=== PATIENT | female | born 1985 | race Caucasian/White ===

== ENCOUNTER 2018-01-13 10:35 | Inpatient (IN) | payer OTHER ==
[~2018-01-13] VITALS: Ht 157.5 cm; Wt 54.4 kg
--- NOTE | ~2018-01-13 | EKG ---
[address] [place] [address] ELECTROCARDIOGRAM REPORT Name: KEVIN BROOKS Room #: 432-P ADM IN M.R.#: [id number] Admission: 01/13/18 Attend Phys: Marcelino Méndez MD Discharge: Date of : 81 Report #: [id number] THIS REPORT FOR: //name// [facility] ED Test Date: 2018-01-13 Test Time: 11:16:17 Pat Name: KEVIN BROOKS Department: Room: Gender: F Cell Geneticist: STEFANIA : 1985 Requested By: Chau Franco Order Number: [id number] MD: Franklin Mead Measurements Intervals Snyder Rate: 75 P: 66 ND: 132 QRS: 29 QRSD: 93 T: 54 QT: 373 QTc: 417 Interpretive Statements Sinus rhythm Normal tracing No previous ECG available for comparison Electronically Signed On 01-14-2018 7:38:09 CDT by Franklin Mead [email or web address] <ELECTRONICALLY SIGNED> By: Franklin Mead MD, [facility] 01/14/18 0738 [id number] Franklin Mead MD, FACC /EPI
--- NOTE | ~2018-01-13 | HC ---
[facility] [place] [address] CONSULTATION Name: KEVIN BROOKS Room #: 432-[facility] IN M.R.#: [id number] Admission: 01/13/18 Attend Phys: Marcelino Méndez MD Discharge: 01/16/18 Date of : 81 Report #: [id number] THIS REPORT FOR: //name// CC: MAEVE physician/PCP Marcelino Méndez DATE OF SERVICE: 01/14/2018 ATTENDING PHYSICIAN: Marcelino Méndez MD REASON FOR CONSULTATION: Fever. Pyelonephritis. Bacteremia. HISTORY OF PRESENT ILLNESS: A 32-year-old white woman admitted through the Emergency Room with history of left flank pain. The patient's urinalysis and urine culture abnormal compatible with acute pyelonephritis and so does the CT scan of abdomen and pelvis that revealed edematous changes of the left kidney. No previous episode of acute urinary tract infection. When the patient is being queried about medication use, the patient's boyfriend tells me she only uses ibuprofen. Her drug screen is positive for multiple drugs. DRUG ALLERGIES: None listed. MEDICATIONS: The patient is currently on treatment with nicotine patch, ibuprofen 400 mg every 8 hours if needed, Rocephin 1 gram IV daily, polyethylene glycol 17 grams daily, acetaminophen 650 or q.i.d. p.r.n., hydrocodone bitartrate 1-2 tablets q.4 h. p.r.n., lorazepam 0.5 mg q.i.d. p.r.n., zolpidem 5 mg at bedtime p.r.n., ondansetron 4 mg IVP q.4 h. p.r.n., alprazolam 1 mg at bedtime, normal saline 1000 mL IV every 8 hours. SOCIAL HISTORY: See H and P and ER notes. FAMILY HISTORY: See H and P and ER notes. REVIEW OF SYSTEMS: Left flank pain. The patient is tearful. I wonder if it is from pain or whatever else, but I did not delve into those issues. PHYSICAL EXAMINATION: GENERAL: A well-developed, well-nourished woman. VITAL SIGNS: Temperature 102.3, pulse 97, respirations 16, BP as low as 90/57 on admission, 100/51 now. O2 saturation 97% on room air. HEENMT: Pupils reactive. Conjunctivae normal. Mouth heavily coated with whitish secretions. Does not look like thrush. NECK: Supple, no thyromegaly. BREASTS: Deferred. LUNGS: Clear. HEART: S1, S2. [address] [address] CONSULTATION Name: KEVIN BROOKS Room #: [facility] IN M.R.#: [id number] Admission: 01/13/18 Attend Phys: Marcelino Méndez MD Discharge: 01/16/18 Date of : 81 Report #: [id number] ABDOMEN: Tenderness in left flank on percussion. No palpable masses or megaly. PELVIC AND RECTAL: Deferred. EXTREMITIES: Normal. LABORATORY DATA: Revealed the following abnormal SGOT 88 on admission, 69 today. Magnesium 1.5 mg/dL. Serum calcium low possible reflecting hypoalbuminemia. She is definitely hypoalbuminemic on admission 2.7, today 2.3. The SGPT 135 on admission, 102 today. Her urine drug screen is positive for amphetamine, methamphetamines, benzodiazepines, opiates and marijuana. White blood cell count on admission 22,800, drops to 14,200 today; hemoglobin 11.9 g/dL; platelets 170,000 today. Urinalysis: Abnormal, compatible with acute urinary tract infection. MICROBIOLOGY DATA: Blood cultures 1 out of 2 samples reveal gram-negative rods and urine culture revealed greater than 100,000 colonies of gram-negative rods. RADIOLOGY EVALUATION: CT scan abdomen and pelvis revealed changes in the left kidney compatible with acute pyelonephritis. ASSESSMENT: 1. Acute pyelonephritis, complicated with bacteremia. 2. Polysubstance abuse. 3. Abnormal liver function tests, question etiology. 4. Hypoalbuminemia. SUGGESTIONS: Recommend continue treatment with Rocephin, which possibly will be effective against E. coli and Klebsiella, usual causing acute pyelonephritis in a young woman. The patient needs to have hepatitis A, B and C serology as well as check HIV serology. Dr. Méndez, thank you for requesting my suggestions. <ELECTRONICALLY SIGNED> By: Forrest Murphy MD 01/17/18 0924 1118 31 Forrest Murphy MD /nt
[2018-01-13 10:42] VITALS: BP 90/57
[2018-01-13 11:24] LABS: HEMATOCRIT 36.5 % (37.0-47.0); HEMOGLOBIN 12.2 gm/dL (12.0-15.0); MCH 30.1 pg (26.0-34.0); MCHC 33.4 g/dL (28.0-37.0); MCV 89.9 fL (80.0-100.0); PLATELET COUNT 181 thou/uL (150-400); RBC 4.05 mil/uL (4.20-5.00); RDW 14.6 % (10.5-14.5); WBC 22.8 thou/uL (4.0-11.0)
[2018-01-13 11:33] LABS: ANION GAP 10 mmol/L (7-16); BUN 10 mg/dL (7-18); CALCIUM 8.3 mg/dL (8.5-10.1); CHLORIDE 103 mmol/L (98-107); CO2 22 mmol/L (21-32); GLUCOSE 102 mg/dL (74-106); POTASSIUM 3.9 mmol/L (3.5-5.1); SODIUM 135 mmol/L (136-145)
[2018-01-13 11:42] LABS: TROPONIN-I < 0.04 ng/mL (<0.06)
[2018-01-13 12:18] LABS: ABSOLUTE NEUTROPHILS 19.8 thou/uL (1.4-8.2)
[2018-01-13 12:28] LABS: URINE BILIRUBIN NEGATIVE (Negative); URINE BLOOD 2+ (Negative); URINE COLOR YELLOW; URINE GLUCOSE-RANDOM* NEGATIVE (Negative); URINE KETONES NEGATIVE (Negative); URINE NITRITE-REFLEX NEGATIVE (Negative); URINE PROTEIN (DIPSTICK) 1+ (Negative); URINE SPECIFIC GRAVITY <= 1.005 (1.005-1.035); URINE UROBILINOGEN 0.2 E.U./dl (0.2-1.0)
[2018-01-13 12:38] LABS: ALBUMIN 2.7 g/dL (3.4-5.0); DIRECT BILIRUBIN 0.3 mg/dL (<0.1-0.3); TOTAL BILIRUBIN 0.6 mg/dL (<0.1-1.0); TOTAL PROTEIN 6.9 g/dL (6.4-8.2)
[2018-01-13 12:39] LABS: URINE CLARITY HAZY; URINE LEUKOCYTES-REFLEX 3+ (Negative)
[2018-01-13 12:41] LABS: BACTERIA-REFLEX >30 Many /HPF (None Seen); CASTS None Seen /LPF (None Seen); CRYSTALS None Seen /LPF (None Seen); SQUAMOUS 0-3 Few /LPF (0-3); URINE RBC 3-10 Few /HPF (0-2); URINE WBC-REFLEX >25 Many /HPF (0-5)
[2018-01-13 13:23] VITALS: BP 91/52
[2018-01-13 15:22] VITALS: BP 91/52
[2018-01-13 15:36] LABS: AMP/METHAMP POSITIVE (Negative); BARBITURATES Negative (Negative); BENZODIAZEPINES POSITIVE (Negative); COCAINE Negative (Negative); METHADONE Negative (Negative); OPIATES POSITIVE (Negative); PCP Negative (Negative)
[2018-01-13 16:43] VITALS: BP 129/95
[2018-01-13 20:00] VITALS: BP 105/55
[2018-01-13] MEDS ORDERED: XANAX1 MG PO (21:22)
[2018-01-14 04:00] VITALS: BP 108/64
[2018-01-14 06:12] LABS: ABSOLUTE NEUTROPHILS 12.9 thou/uL (1.4-8.2); BASOPHILS 0.2 % (0.0-2.0); EOSINOPHILS 0.3 % (0.0-3.0); HEMATOCRIT 35.8 % (37.0-47.0); HEMOGLOBIN 11.9 gm/dL (12.0-15.0); LYMPHOCYTES 3.2 % (24.0-44.0); MCH 29.9 pg (26.0-34.0); MCHC 33.2 g/dL (28.0-37.0); MONOCYTES 5.1 % (1.0-8.0); PLATELET COUNT 170 thou/uL (150-400); POLYS 91.2 % (36.0-66.0); RBC 3.98 mil/uL (4.20-5.00); RDW 15.3 % (10.5-14.5); WBC 14.2 thou/uL (4.0-11.0)
[2018-01-14 06:24] LABS: CALCIUM 7.8 mg/dL (8.5-10.1); MAGNESIUM 1.5 mg/dL (1.8-2.4)
[2018-01-14 07:13] VITALS: BP 100/51
[2018-01-14 08:49] LABS: ALBUMIN 2.3 g/dL (3.4-5.0); DIRECT BILIRUBIN 0.4 mg/dL (<0.1-0.3); TOTAL BILIRUBIN 0.6 mg/dL (<0.1-1.0); TOTAL PROTEIN 6.3 g/dL (6.4-8.2)
[2018-01-14 15:20] VITALS: BP 122/64
[2018-01-14 20:00] VITALS: BP 114/71
[2018-01-15 05:56] VITALS: BP 89/53
[2018-01-15 08:28] VITALS: BP 115/75
[2018-01-15 20:30] VITALS: BP 109/63
[2018-01-16 02:05] LABS: HAV IgM AB (ANTI-HAV IgM) Negative (Negative); HEPATITIS B SURFACE AG Negative (Negative); HEPATITIS C VIRUS AB <0.1 (0.0-0.9)
[2018-01-16 04:14] LABS: ABSOLUTE NEUTROPHILS 2.4 thou/uL (1.4-8.2); BASOPHILS 0.5 % (0.0-2.0); HEMATOCRIT 30.4 % (37.0-47.0); HEMOGLOBIN 10.4 gm/dL (12.0-15.0); LYMPHOCYTES 31.8 % (24.0-44.0); MCH 30.6 pg (26.0-34.0); MONOCYTES 6.6 % (1.0-8.0); PLATELET COUNT 174 thou/uL (150-400); POLYS 57.1 % (36.0-66.0); RBC 3.38 mil/uL (4.20-5.00); RDW 15.5 % (10.5-14.5); WBC 4.3 thou/uL (4.0-11.0)
[2018-01-16 04:16] LABS: ALBUMIN 1.9 g/dL (3.4-5.0); CALCIUM 8.6 mg/dL (8.5-10.1); CREATININE 0.9 mg/dL (0.6-1.0); POTASSIUM 3.9 mmol/L (3.5-5.1); TOTAL BILIRUBIN 0.7 mg/dL (<0.1-1.0); TOTAL PROTEIN 5.6 g/dL (6.4-8.2)
[2018-01-16 04:30] VITALS: BP 129/82
[2018-01-16 05:45] LABS: HIV ANTIBODY Non Reactive (Non Reactive)
[2018-01-16 08:03] VITALS: BP 99/62
[2018-01-16] MEDS ORDERED: HYDROCODON-ACE1 EAC7 PO (12:08)
[2018-01-16] MEDS ORDERED: KEFLEX500 M1 PO (12:08)
[2018-01-16] MEDS ORDERED: NICOTINE1 EAC2 TRANSDERM (12:08)
[2018-01-16] MEDS ORDERED: IBUPROFEN 400400 M2 PO (12:08)
[2018-01-16] MEDS ORDERED: ALPRAZOLAM 0.50.5 M1 PO (12:25)
[2018-01-16 12:45] VITALS: BP 99/62
== END 2018-01-16 13:29 | disposition home or self-care (01) | DRG 871 ==
LOC: ER 10:35 → EROBS 13:23 → 4E 13:23
PROVIDERS: Hospitalist; Internal Medicine Geriatric Medicine; Internal Medicine Infectious Disease; Nurse Practitioner; Physician Assistant
DX: A41.9 Sepsis, unspecified organism (principal); E43 Unspecified severe protein-calorie malnutrition; N10 Acute pyelonephritis; R74.0 Nonspecific elevation of levels of transaminase and lactic acid dehydrogenase [LDH]; F19.10 Other psychoactive substance abuse, uncomplicated; E88.09 Other disorders of plasma-protein metabolism, not elsewhere classified; F41.9 Anxiety disorder, unspecified; F17.210 Nicotine dependence, cigarettes, uncomplicated; B96.20 Unspecified Escherichia coli [E. coli] as the cause of diseases classified elsewhere; Z16.29 Resistance to other single specified antibiotic; Z16.11 Resistance to penicillins; Z16.39 Resistance to other specified antimicrobial drug; Z16.19 Resistance to other specified beta lactam antibiotics; Z71.6 Tobacco abuse counseling; Z68.21 Body mass index [BMI] 21.0-21.9, adult; Z79.899 Other long term (current) drug therapy; Z88.8 Allergy status to other drugs, medicaments and biological substances; Z91.018 Allergy to other foods
CPT/HCPCS: 10783

== ENCOUNTER → 2018-01-19 | Outpatient (CLI) | payer OTHER ==
[~2018-01-19] VITALS: Ht 160 cm; Wt 53.5 kg
[~2018-01-19] MED LIST: ALPRAZOLAM 0.50.5 M1 PO; HYDROCODON-ACE1 EAC7 PO; IBUPROFEN 400400 M2 PO; KEFLEX500 M1 PO; NICOTINE1 EAC2 TRANSDERM; PAXIL10 MG; TYLENOL PM EX-1 EACH; XANAX1 MG PO
[2018-01-19 11:13] VITALS: BP 114/72
== END ==
LOC: SEN 08:57
DX: G89.29 Other chronic pain (principal); M54.89 Other dorsalgia

== ENCOUNTER 2019-11-24 09:50 | Emergency (ER) | payer OTHER ==
[~2019-11-24] VITALS: Ht 160 cm; Wt 54.4 kg
--- NOTE | ~2019-11-24 | EMS ---
[address] [address] EMS Patient Care Report Name: KEVIN BROOKS Room #: REG [facility]#: [id number] Admission: 11/24/19 Attend Phys: Discharge: Date of : 81 Report #: [id number] THIS REPORT FOR: //name// Report Transmitted: 11/24/2019 11:57 EMS Care Summary [place], [place]/[facility] Incident [id number] @ 11/24/2019 09:09 Incident Location [address] [place] [address] Patient KEVIN RICE Female, 34 Years 1985 Patient Address [address] [place] [address] Patient History Back Pain (Chronic), Patient Allergies [place] allergy, Patient Medications None Reported, Chief Complaint PT took fentanyl powder Disposition Transported No Lights/[place] Dispatch Reason Overdose/Poisoning/Ingestion Transported To [facility] Narrative [facility] ON SCENE REPORTS THAT PT WAS FOUND LAYING SUPINE WITH A RESPIRATORY RATE OF 4 BPM AND AND ROOM AIR STAT OF 50%. PT HAD OXYGEN APPLIED AND AN IV APPLIED AND PT WAS GIVEN NARCAN. PT WAS ALERT WHEN EMS ARRIVED ON SCENE. PT HAS NO COMPLAINTS. [address] [address] EMS Patient Care Report Name: KEVIN BROOKS Room #: [facility]#: [id number] Admission: 11/24/19 Attend Phys: Discharge: Date of : 81 Report #: [id number] PT WAS FOUND LAYING SUPINE ON THE FLOOR. PT SPOKE IN FULL AND COMPLETE SENTENCES. PT IS UNABLE TO STAND. PT HAS NO OTHER OBVOUS ABNORMALITIES. Initial Vitals @PTAP: 93,BP: 126/86,SpO2: 28, @PTAP: 47, @PTAP: 92,R: 18,Pain: 0/10,GCS: 15,SpO2: 37, @PTAP: 74,SpO2: 4, @PTAP: 122,CO: 7,SpO2: 98, @PTAP: 100,CO: 8,SpO2: 37, Assessments @09:36MENTAL:Person Oriented,Time Oriented,Place Oriented,Event Oriented,SKIN:Cold,Pale,Diaphoresis,HEENT:Eyes: Left Pupil: 3-mm,Eyes: Right Pupil: 3-mm,Head/Face: No Abnormalities,LUNG SOUNDS:General: No Abnormalities,ABDOMEN:General: No Abnormalities,PELVIS//GI:EXTREMITIES:Capillary Refill: Right Upper: < 2 Sec,Left Arm: No Abnormalities,Right Arm: No Abnormalities,Left Leg: No Abnormalities,Right Leg: No Abnormalities,PULSE:Radial: 2+ Normal,NEURO: Impression Overdose - Heroin Procedures @PTASaline Lock 10cc (18 ga) Site: Antecubital-LeftResponse: ImprovedSucceeded@PTAGeneral CommentsResponse: Improved@PTANarcan - 2 Milligrams (mg) - Endotracheal Tube (ET)@09:35ALS AssessmentSucceeded@09:363-Lead ECGResponse: UnchangedSucceeded@09:37Oxygen FlowRate: 4 Device: Nasal Cannula (NC) Response: UnchangedSucceeded Timeline DRAPERY HAND,Saline Lock 10cc 18 ga Site: Antecubital-Left,Response: ImprovedSucceeded, DRAPERY HAND,General Comments,Response: Improved DRAPERY HAND,Narcan - 2 Milligrams (mg) - Endotracheal Tube (ET), DRAPERY HAND,BP: 126/86 M,PULSE: 93,RR: R,SPO2: 28 Ox,ETCO2: ,BG: ,PAIN: ,GCS: , DRAPERY HAND,BP: / M,PULSE: 47,RR: R,SPO2: Ox,ETCO2: ,BG: ,PAIN: ,GCS: , DRAPERY HAND,BP: / M,PULSE: 92,RR: 18 R,SPO2: 37 Ox,ETCO2: ,BG: ,PAIN: 0,GCS: 15, DRAPERY HAND,BP: / M,PULSE: 74,RR: R,SPO2: 4 Ox,ETCO2: ,BG: ,PAIN: ,GCS: , DRAPERY HAND,BP: / M,PULSE: 122,RR: R,SPO2: 98 Ox,ETCO2: ,BG: ,PAIN: ,GCS: , DRAPERY HAND,BP: / M,PULSE: 100,RR: R,SPO2: 37 Ox,ETCO2: ,BG: ,PAIN: ,GCS: , 09:07,Call Received 09:07,Dispatch Notified 09:09,Dispatched 09:11,En Route 09:34,On Scene [address] [address] EMS Patient Care Report Name: CECILIAKEVIN Room #: REG [facility]RISTOPHER [facility]#: [id number] Admission: 11/24/19 Attend Phys: Discharge: Date of : 81 Report #: [id number] 09:34,At Patient 09:34,Depart Scene 09:35,ALS Assessment,Succeeded, 09:36,3-Lead ECG,Response: UnchangedSucceeded, 09:37,Oxygen FlowRate: 4 Device: Nasal Cannula (NC) Response: UnchangedSucceeded, 09:46,At Destination 10:16,Call Closed Disclaimer v1.1 Copyright 2020 [employer] This EMS Care Summary contains data elements from the applicable legal record (which may be displayed differently). It is designed to provide pertinent information for the following purposes: continuity of care, clinical quality, and state data reporting. The complete legal record is available to ED staff and administrators of the receiving hospital in [facility]'s Patient Tracker. All data is provided "as is."
[2019-11-24] MEDS ORDERED: ZOLOFT50 M1 PO (10:07)
[2019-11-24 14:14] VITALS: BP 117/72
== END 2019-11-24 14:14 | disposition home or self-care (01) ==
LOC: ER 09:50
DX: T40.2X1A Poisoning by other opioids, accidental (unintentional), initial encounter (principal); F17.210 Nicotine dependence, cigarettes, uncomplicated; Z79.899 Other long term (current) drug therapy; Z88.8 Allergy status to other drugs, medicaments and biological substances; Z91.018 Allergy to other foods; Y92.89 Other specified places as the place of occurrence of the external cause